=== PATIENT | female | born 1980 | race Caucasian/White ===

== ENCOUNTER 2017-09-22 02:30 | Observation (INO) ==
[2017-09-22] MEDS ORDERED: Naloxone 0.4 MG/ML INJ IVP PRN (05:01)
[2017-09-22] MEDS ORDERED: Acetaminophen 325 MG TABLET PO PRN (05:01)
[2017-09-22] MEDS ORDERED: Ondansetron 4 MG/2 ML VIAL IVP PRN (05:06)
--- NOTE | 2017-09-22 05:24 | Internal Med History&Physical ---
Date of Encounter: 09/22/17 Time of Encounter: 04:30 Internal Medicine - H&P: HPI Chief complaint: Seizure-like activity Admitted From: Home Plans for Post Hospital Care: Home History of present illness: Ms. Mojica is a 37 year old female present to [place] emergency room for seizure- like activity. Patient said she is in good health generally without significant past medical history. Patient was well until yesterday evening around 10:30 PM, she feels hot and sweaty and then loss of consciousness. The loss of consciousness is witnessed by patient's . Patient's held her to prevent fall and the patient did not have any injury. Per patient's , patient's eyeballs rolled up and loss of consciousness for about 3-4 minutes. Patient has no shaking. When patient regarding consciousness, she is confused for about 30 minutes. Patient was found blood in mouth but denies any pain in tongue. Patient has urinary incontinence during the period of loss of consciousness. Patient has never had similar problem before. When I saw her in the floor, she complained of nausea but no vomiting. Patient denies recent sick or diarrhea. In [place] emergency room, patient was found anemia with hemoglobin 7.0. Patient denies black stool or heavy period. Patient said she has ice craving for about 1 month. Past Med Surg Social Fam HX - Past Medical History Medical history: hypertension Psychiatric history: no psych history - Social History Smoking Status: Current every day smoker Smokeless Tobacco Status: No Alcohol use: occasionally Drug use: none - Family History Mother History Unknown: Yes Internal Medicine - H&P: Meds 3 Allergy/AdvReac Type Severity Reaction Status Date / Time Sulfa (Sulfonamide AdvReac Anaphylaxis Verified 09/21/17 23:21 Antibiotics) All Systems PM: A 10-system review of systems was performed and is negative for pertinent findings except as documented above in the HPI. - Constitutional Vitals: Temp Pulse Resp BP Pulse Ox 98.3 F 87 14 157/90 98 09/22/17 04:11 09/22/17 04:11 09/22/17 04:11 09/22/17 04:11 09/22/17 04:11 General appearance: Present: A&O X 3, no acute distress, answers questions appropriately - Head Head exam: Present: atraumatic, normocephalic - Eye Eye exam: Present: PERRL, conjuntiva pink, sclera anicteric Pupils: Present: PERRL - Neck Neck exam general surgery: Present: supple, trachea midline. Absent: lymphadenopathy - Respiratory Respiratory exam: Present: CTAB. Absent: accessory muscle use, rales, rhonchi, wheezes - Cardiovascular Cardiovascular exam: Present: RRR, +S1, +S2. Absent: diastolic murmur, gallop, rubs, systolic murmur - GI/Abdominal GI/Abdominal exam: Present: normal bowel sounds, soft, no peritoneal signs. Absent: distended, tenderness - Extremities Exam Extremities exam: Present: warm, radial pulses palpable and symmetrical. Absent : calf tenderness, cyanotic, pedal edema - Neurological Exam Neurological exam: Present: CN II-XII intact, oriented X3, no focal deficits. Absent: pronater drift, facial droop, speech deficit - Skin Skin exam: Present: dry, intact - Assessment and plan (1) Seizure-like activity Current Visit: Yes Status: Acute Assessment and plan: Etiology is undetermined. Patient has loss of consciousness with urinary incontinence. Patient has confusion after the loss of consciousness. - Place patient on continuous cardiac monitoring to rule out arrhythmia. - Echocardiogram to rule out hypertrophic cardiomyopathy or pulmonary hypertension or aortic valve disease. - MR head in AM - EEG in AM - Consult neurology in a.m. - Seizure precaution, fall precaution (2) DVT prophylaxis Current Visit: Yes Status: Acute Assessment and plan: Patient is young and ambulating well. No anticoagulation placed. (3) Hypokalemia Current Visit: No Status: Acute Assessment and plan: Etiology is undetermined. Patient said she has generally good appetite. Potassium supplement was given ER. Closely monitor potassium level. (4) Microcytic anemia Current Visit: No Status: Acute Assessment and plan: We will place anemia workup. Closely monitor hemoglobin level, transfusion as needed. - Time Spent With Patient Total time spent is greater than 50% in coordination of care (as documented) at patient's floor/unit and/or counseling patient: 40 minutes Greater than 35 minutes
[2017-09-22 05:36] LABS: Basophils % 0.3 %; Eosinophils % 0.3 %; Hematocrit 24.7 % (35.3-44.9); Hemoglobin 7.2 g/dL (11.5-15.4); Immature Granulocytes % 0.4 % (0-4); Lymphocytes # 0.7 K/mcL (0.6-4.6); Lymphocytes % 8.6 %; Mean Corpuscular HGB Conc 29.1 g/dL (31.6-35.5); Mean Corpuscular Hemoglobin 19.7 pg (28.0-33.3); Mean Corpuscular Volume 67.5 fL (83.0-100.0); Monocytes # 0.3 K/mcL (0.0-1.3); Monocytes % 3.4 %; Neutrophils # 6.9 K/mcL (1.6-8.9); Platelet Count 246 K/mcL (140-400); Red Blood Count 3.66 M/mcL (3.82-4.97); Red Cell Distribution Width 17.4 % (11.5-14.5)
[2017-09-22 05:48] LABS: INR 1.2; Prothrombin Time 12.6 Seconds (9.4-12.1)
[2017-09-22 05:53] LABS: Hypochromasia Present (Not Present); Microcytosis Present (Not Present); Platelet Estimate Normal (Normal)
[2017-09-22 05:54] LABS: Anisocytosis 1+ (Not Present)
[2017-09-22 06:04] LABS: Alanine Aminotransferase 9 Units/L (7-52); Albumin 3.8 g/dL (3.5-5.7); Albumin/Globulin Ratio 1.5 (1.1-2.2); Alkaline Phosphatase 59 Units/L (34-104); Aspartate Amino Transferase 12 Units/L (13-39); BUN/Creatinine Ratio 13 (6-26); Bilirubin,Total 0.4 mg/dL (0.3-1.0); Blood Urea Nitrogen 10 mg/dL (6-20); Calcium 7.9 mg/dL (8.6-10.3); Carbon Dioxide 25 mEq/L (23-29); Chloride 105 mEq/L (98-107); Chol/HDL Ratio 2.7 (0-4.9); Cholesterol 142 mg/dL (< 200); Globulin 2.6 g/dL (2.4-3.5); Glucose 112 mg/dL (70-105); HDL Cholesterol 53 mg/dL (40-59); LDL Cholesterol,Calculated 76 mg/dL (0-99); Osmolality,Calculated 282 (280-300); Phosphorous 2.4 mg/dL (2.7-4.5); Potassium 3.7 mEq/L (3.5-5.1); Sodium 136 mEq/L (136-145); Total Protein 6.4 g/dL (6.4-8.9); Triglycerides 63 mg/dL (< 150); eGFR For African Americans > 60 (> 60); eGFR For Non-African Americans > 60 (> 60)
[2017-09-22 06:11] LABS: Iron < 10 mcg/dL (50-170); Transferrin 330 mg/dL (203-362)
[2017-09-22 06:19] LABS: Ferritin 10 ng/mL (10-120)
[2017-09-22 06:22] LABS: Folate 6.4 ng/mL (3.0-16.0)
--- NOTE | 2017-09-22 12:38 | Neurology - Consult Note ---
Date of Encounter: 09/22/17 Time of Encounter: 12:32 Assessment and Plan (1) Syncope and collapse Current Visit: No Status: Acute Do not believe this was a seizure, especially with the current finding of significant microcytic anemia of unknown cause. Patient has reportedly blood in her mouth but no tongue biting renate and the urinary incontinence can also be seen in patient's with prolonged syncope. She has no risk factor for epilepsy, except her history of alcoholic beverage use but she does not appear to be a heavy alcohol user. MRI of brain showed essential no acute finding. Likely artefact reported with regarding to 1. Failed CSF suppression on the FLAIR sequences around the cisterns along the brainstem. This is most likely related to artifact. A noncontrast head CT is recommended to exclude any areas of hemorrhage. 2. Otherwise unremarkable MRI of the brain. No ictal focus is identified. Would recommend CT of head without contrast as suggested by radiologist but patient has no headaches and her neurological examination is normal. Would recommend medical work up for her anemia. Would not consider antiepileptic therapy. EEG can be done as an outpatient. Please continue medical and supportive care. Total time spent in this case is approximately 50 minutes History of Present Illness Chief complaint: passed out HPI: Ms. Mojica is a 37 year old female with no significant PMH except recent tooth ache who developed an episode of passing out vs seizure. She is interviewed in the presence of her mother and daughter. She states that yesterday she had few drinks (one course, alcoholic beverage) and then after she got out the truck and she suddenly felt sweaty and then passed out. She was caught up by her so she did not fall. reported that her eyes were rolling back but there was no shaking activity. She was out for few minutes and she lost her urine. Has blood in her mouth but no tongue biting renate and no tongue soreness. She was confused for about 30 minutes after came to. She also felt that her legs were heavy yesterday the entire day. MRI of head was reported no acute intracranal abnormality but recommended CT of head without contrast to rule out cerebral hemorrhage. No family history of epilepsy. No history of [employer] infections, no history of febrile convulsions when younger, no history of head trauma with loss of consciousness. Only significant lab finding was low HGB of 7, Patient denies any known cause for that. she does have some tooth ache for about 2 weeks. no fever. No heavy menstruation. Currently the patient feels much improved. No headaches, no dizziness and no focal weakness Past Med Surg Social Fam HX - Past Medical History Medical history: hypertension Psychiatric history: no psych history - Past Surgical History Surgical History: - Social History Smoking Status: Current every day smoker Smokeless Tobacco Status: No Alcohol use: occasionally Drug use: none - Family History Father Living Status: Hx Family Cardiac Disorders: Yes (ND) Brother Living Status: Still Living Hx Family Medical Disorders: Yes (Acute embolism) Mother History Unknown: Yes Medications and Allergies No Known Home Drugs 09/22/17 [History] 3 Allergy/AdvReac Type Severity Reaction Status Date / Time Sulfa (Sulfonamide Allergy Anaphylaxis Verified 09/22/17 10:56 Antibiotics) All Systems: The remainder of the systems were reviewed and are negative Physical Examination - Vital Signs Vital Signs: Initial Vital Signs Temp Pulse Resp BP Pulse Ox 98.3 F 87 14 157/90 98 09/22/17 04:11 09/22/17 04:11 09/22/17 04:11 09/22/17 04:11 09/22/17 04:11 - Constitutional General appearance: comfortable - Neurologic Detailed motor examination: full strength in all major muscle groups Motor examination - right side: 5/5: deltoids, biceps, triceps, wrist flexion, wrist extension, document coordinator, hip flexors, tibialis Anterior, quadriceps, toe extension (EHL), plantarflexion Motor examination - left side: 5/5: deltoids, biceps, triceps, wrist flexion, wrist extension, hip flexors, document coordinator, quadriceps, tibialis Anterior, toe extension (EHL), plantarflexion Reflexes: Biceps: 2+, Triceps: 2+, Brachioradialis: 2+, Patella: 2+, Achilles: 2 + Mental Status Examination: awake, alert, oriented to person, oriented to place, oriented to time, follows commands appropriately, answers questions appropriately, no agnosia, no aphasia, no aproxia Cranial nerve examination: PERRL, EOMI, visual haider intact, corneal reflexes brisk symmetrically, sensory to face intact, mastication intact, no facial asymmetry is present, no dysarthria, hearing is intact symmetrically, soft palate elevates bilaterally upon phonation, gag reflex intact, flexes SCM and trapezius muscles symmetrically with full power, tongue protrudes midline, no atrophy or facial fasiculations present Cerebellar examination: no dysmetria, performs finger to nose and heel to fulton symmetrically without ataxia, no gait ataxia, no truncal ataxia, no difficulty with rapid alternating movements Results - Laboratory Findings CBC and BMP: 09/22/17 05:22 09/22/17 05:22 Abnormal lab findings: Abnormal lab results RBC 3.66 M/mcL (3.82-4.97) L 09/22/17 05:22 Hgb 7.2 g/dL (11.5-15.4) L 09/22/17 05:22 Hct 24.7 % (35.3-44.9) L 09/22/17 05:22 MCV 67.5 fL (83.0-100.0) L 09/22/17 05:22 MCH 19.7 pg (28.0-33.3) L 09/22/17 05:22 MCHC 29.1 g/dL (31.6-35.5) L 09/22/17 05:22 RDW 17.4 % (11.5-14.5) H 09/22/17 05:22 Hypochromasia Present (Not Present) A 09/22/17 05:22 Anisocytosis 1+ (Not Present) A 09/22/17 05:22 Microcytosis Present (Not Present) A 09/22/17 05:22 PT 12.6 Seconds (9.4-12.1) H 09/22/17 05:22 Glucose 112 mg/dL (70-105) H 09/22/17 05:22 Calcium 7.9 mg/dL (8.6-10.3) L 09/22/17 05:22 Phosphorus 2.4 mg/dL (2.7-4.5) L 09/22/17 05:22 Iron < 10 mcg/dL (50-170) L 09/22/17 05:22 AST 12 Units/L (13-39) L 09/22/17 05:22 Vitamin B12 156 pg/mL (250-1100) L 09/22/17 05:22 Consult Discharge Plan - Plan Referrals: NONE,PCP [Primary Care Provider] - Georgie Juarez [Family Provider] -
[2017-09-22] MEDS ORDERED: Furosemide 20 MG/2 ML VIAL IVP ONE (17:12)
[2017-09-22] MEDS ORDERED: amLODIPine 5 MG TABLET PO ONE (17:15)
--- NOTE | 2017-09-22 17:19 | Event Note ---
Date of Encounter: 09/22/17 Time of Encounter: 11:00 Patient was seen by nocturnalist earlier this morning and also by myself Patient presented with syncopal/question post seizure like activity Neurology consulted and does not suspect seizures with recommendations for EEG which could be completed as outpatient. Imaging of the brain without any acute findings Patient found to have acute blood loss anemia and will be transfused 2 units of packed red blood cells; we will consult hematology/oncology Patient with also persistent elevated blood pressures so will start calcium channel fifi
[2017-09-22] MEDS ORDERED: 0.9 % Sodium Chloride 250 ML ONE ×2 (20:19→23:26)
[2017-09-22] MEDS ORDERED: *HR* Metoprolol 5 MG/5 ML VIAL IVP ONE (22:16)
[2017-09-22] MEDS: Lactobacillus 1 EACH CAP.SPRINK PO SCH (22:38)
[2017-09-23] MEDS ORDERED: Furosemide 20 MG/2 ML VIAL IVP ONE (03:00)
[2017-09-23 03:29] LABS: Hematocrit 28.8 % (35.3-44.9); Hemoglobin 8.5 g/dL (11.5-15.4)
[2017-09-23 04:57] LABS: Amphetamine Screen,Urine Negative ng/mL (Cutoff=1000); Barbiturate Screen,Urine Negative ng/mL (Cutoff=200); Benzodiazepines Screen,Urine Negative ng/mL (Cutoff=200); Cannabinoid Screen,Urine Negative ng/mL (Cutoff = 50); Cocaine Screen,Urine Negative ng/mL (Cutoff= 300); Opiate Screen,Urine Negative ng/mL (Cutoff=300); Phencyclidine Screen,Urine Negative ng/mL (Cutoff=25)
[2017-09-23 09:23] LABS: Basophils # 0.1 K/mcL (0.0-0.2); Eosinophils # 0.2 K/mcL (0.0-0.6); Eosinophils % 3.8 %; Hematocrit 32.4 % (35.3-44.9); Hemoglobin 9.6 g/dL (11.5-15.4); Immature Granulocytes % 0.2 % (0-4); Lymphocytes # 0.9 K/mcL (0.6-4.6); Lymphocytes % 14.8 %; Mean Corpuscular HGB Conc 29.6 g/dL (31.6-35.5); Mean Corpuscular Hemoglobin 20.5 pg (28.0-33.3); Mean Corpuscular Volume 69.1 fL (83.0-100.0); Mean Platelet Volume 10.9 fL (9.4-12.4); Monocytes # 0.3 K/mcL (0.0-1.3); Monocytes % 5.6 %; Neutrophils # 4.3 K/mcL (1.6-8.9); Platelet Count 292 K/mcL (140-400); Red Blood Count 4.69 M/mcL (3.82-4.97); Red Cell Distribution Width 18.9 % (11.5-14.5); Segmented Neutrophils % 74.6 %
[2017-09-23 09:39] LABS: BUN/Creatinine Ratio 13 (6-26); Blood Urea Nitrogen 12 mg/dL (6-20); Calcium 8.9 mg/dL (8.6-10.3); Carbon Dioxide 28 mEq/L (23-29); Chloride 101 mEq/L (98-107); Glucose 131 mg/dL (70-105); Osmolality,Calculated 284 (280-300); Potassium 3.6 mEq/L (3.5-5.1); Sodium 136 mEq/L (136-145); eGFR For African Americans > 60 (> 60); eGFR For Non-African Americans > 60 (> 60)
[2017-09-23] MEDS: Amoxicillin/Clavulanate 500 MG TABLET PO SCH ×2 (09:41→17:39)
[2017-09-23] MEDS: Lactobacillus 1 EACH CAP.SPRINK PO SCH (09:41)
[2017-09-23 10:03] LABS: Microcytosis Present (Not Present); Platelet Estimate Normal (Normal)
--- NOTE | 2017-09-23 17:55 | Internal Med Progress Note ---
Date of Encounter: 09/23/17 Time of Encounter: 11:00 - Assessment and plan (1) Microcytic anemia Current Visit: No Status: Inactive Assessment and plan: Patient's hemoglobin has improved from 7.2 to 9.6 status post 1 unit of packed red blood cells Discussed with hematology/oncologist with recommendations for potential iron infusion Hematology/oncology will see the patient on 09/24/17 Continue to monitor (2) Hypokalemia Current Visit: No Status: Inactive Assessment and plan: Resolved; continue to monitor (3) Seizure-like activity Current Visit: Yes Status: Acute Assessment and plan: Etiology is undetermined. Neurology has seen patient and has determined that seizure unlikely (4) DVT prophylaxis Current Visit: Yes Status: Acute Assessment and plan: Patient is young and ambulating well. No anticoagulation placed. - Time Spent With Patient Total time spent is greater than 50% in coordination of care (as documented) at patient's floor/unit and/or counseling patient: - Subjective Interval history: Patient reports a feeling much better after receiving 1 unit of packed red blood cells - Constitutional Vitals: Temp Pulse Resp BP Pulse Ox 97.8 F 71 16 163/77 98 09/23/17 16:05 09/23/17 16:05 09/23/17 16:05 09/23/17 16:05 09/23/17 16:05 General appearance: Present: A&O X 3, no acute distress, answers questions appropriately - Respiratory Respiratory exam: Present: CTAB. Absent: accessory muscle use, rales, rhonchi, wheezes - Cardiovascular Cardiovascular exam: Present: RRR, +S1, +S2. Absent: diastolic murmur, gallop, rubs, systolic murmur - Skin Skin exam: Present: pallor Internal Medicine: Result - Labs CBC & Chem 7: 09/23/17 09:11 09/23/17 09:11 Labs: Short CBC 09/23/17 09/23/17 Range/Units 03:09 09:11 WBC 5.8 (4.3-11.1) K/mcL Hgb 8.5 L 9.6 L (11.5-15.4) g/dL Hct 28.8 L 32.4 L (35.3-44.9) % Plt Count 292 (140-400) K/mcL Neutrophils # 4.3 (1.6-8.9) K/mcL BMP 06/10/18 09:11 Sodium 136 Potassium 3.6 Chloride 101 Carbon Dioxide 28 BUN 12 Creatinine 0.96 Glucose 131 H Calcium 8.9 - ABG Interpretation ABG results: PT/INR, D-dimer PT 12.6 Seconds (9.4-12.1) H 09/22/17 05:22 - VTE Documentation of Mechanical Device: Intermittent pneumatic compression device Consult Discharge Plan - Plan Referrals: Georgie Juarez [Family Provider] - NONE,PCP [Primary Care Provider] -
[2017-09-24] MEDS: Amoxicillin/Clavulanate 500 MG TABLET PO SCH ×2 (08:37→17:44)
[2017-09-24] MEDS: Lactobacillus 1 EACH CAP.SPRINK PO SCH (08:38)
[2017-09-24 10:03] LABS: Basophils # 0.1 K/mcL (0.0-0.2); Eosinophils # 0.2 K/mcL (0.0-0.6); Eosinophils % 3.9 %; Hematocrit 32.5 % (35.3-44.9); Hemoglobin 9.5 g/dL (11.5-15.4); Immature Granulocytes % 0.2 % (0-4); Lymphocytes # 0.9 K/mcL (0.6-4.6); Lymphocytes % 14.5 %; Mean Corpuscular HGB Conc 29.2 g/dL (31.6-35.5); Mean Corpuscular Hemoglobin 20.3 pg (28.0-33.3); Mean Corpuscular Volume 69.3 fL (83.0-100.0); Monocytes # 0.4 K/mcL (0.0-1.3); Monocytes % 5.9 %; Platelet Count 309 K/mcL (140-400); Red Blood Count 4.69 M/mcL (3.82-4.97); Red Cell Distribution Width 18.8 % (11.5-14.5); Segmented Neutrophils % 74.5 %
[2017-09-24 10:08] LABS: Neutrophils # 4.5 K/mcL (1.6-8.9)
[2017-09-24 10:33] LABS: BUN/Creatinine Ratio 16 (6-26); Blood Urea Nitrogen 15 mg/dL (6-20); Carbon Dioxide 30 mEq/L (23-29); Chloride 102 mEq/L (98-107); Glucose 117 mg/dL (70-105); Osmolality,Calculated 284 (280-300); Potassium 3.8 mEq/L (3.5-5.1); Sodium 136 mEq/L (136-145); eGFR For African Americans > 60 (> 60); eGFR For Non-African Americans > 60 (> 60)
[2017-09-24 10:57] LABS: Anisocytosis 1+ (Not Present); Microcytosis Present (Not Present); Platelet Estimate Normal (Normal)
--- NOTE | 2017-09-24 12:03 | EEG/EMG/Oth Biometrics Report ---
EEG Procedure Report Date of procedure: 09/24/17 EEG Procedure: Routine EEG Procedure Note: This EEG was acquired with standard international 10-20 system with EKG recording. The background EEG activity was characterized by the presence of posterior dominant alpha rhythm with the best frequency up to 11 Hz. The background activity was reactive to eye openings. Sleep stages were characterized by the presence of background fragmentation, vertex waves, K complexes, and sleep spindles. There are no electrographic seizures identified during this tracing. There are no epileptiform discharges and focal slowing noted during this recording. Photic stimulation and hyperventilation produced no abnormalities. Photic driving response noted at the bilateral occipital region, time locked with the photic stimulation Hyperventilation efforts appeared adequate due to development of diffuse background slow during and immediately after HV challenge. EKG tracing showed no significant cardiac dysrhythmia. Impression: This is essentially a normal awake and asleep EEG. Clinical Correlation: Normal EEGs, however, do not exclude epilepsy. Clinical correlation is advised.
[2017-09-24] MEDS: Cyanocobalamin (B-12) 1,000 MCG/ML VIAL SQ SCH (17:43)
--- NOTE | 2017-09-24 17:48 | Internal Med Progress Note ---
Date of Encounter: 09/24/17 Time of Encounter: 11:00 - Assessment and plan (1) Microcytic anemia Current Visit: No Status: Inactive Assessment and plan: Patient's hemoglobin has improved from 7.2 to 9.5 status post 1 unit of packed red blood cells Discussed with hematology/oncologist with recommendations for potential iron infusion Hematology/oncology will see the patient on 09/24/17 Continue to monitor (2) HTN (hypertension) Current Visit: Yes Status: Acute Assessment and plan: Patient found to have elevated blood pressures which have not been controlled since starting calcium channel fifi and beta fifi Qualifiers: Qualified Code(s): I10 - Essential (primary) hypertension (3) Hypokalemia Current Visit: No Status: Inactive Assessment and plan: Resolved; continue to monitor (4) Seizure-like activity Current Visit: Yes Status: Acute Assessment and plan: Etiology is undetermined. Neurology has seen patient and has determined that seizure unlikely (5) DVT prophylaxis Current Visit: Yes Status: Acute Assessment and plan: Patient is young and ambulating well. No anticoagulation placed. - Time Spent With Patient Total time spent is greater than 50% in coordination of care (as documented) at patient's floor/unit and/or counseling patient: - Subjective Interval history: Patient presented due to syncopal event with reported seizure-like activity found to have acute anemia reports of feeling much better after blood transfusion Her EEG was normal Patient also found to have elevated blood pressures which have not been controlled since starting calcium channel fifi and beta fifi - Constitutional Vitals: Temp Pulse Resp BP Pulse Ox 98.4 F 72 16 133/74 98 09/24/17 14:34 09/24/17 14:34 09/24/17 14:34 09/24/17 14:34 09/24/17 14:34 General appearance: Present: A&O X 3, no acute distress, answers questions appropriately - Respiratory Respiratory exam: Present: CTAB. Absent: accessory muscle use, rales, rhonchi, wheezes - Cardiovascular Cardiovascular exam: Present: RRR, +S1, +S2. Absent: diastolic murmur, gallop, rubs, systolic murmur Internal Medicine: Result - Labs CBC & Chem 7: 09/24/17 09:48 09/24/17 09:48 Labs: Short CBC 09/24/17 Range/Units 09:48 WBC 6.1 (4.3-11.1) K/mcL Hgb 9.5 L (11.5-15.4) g/dL Hct 32.5 L (35.3-44.9) % Plt Count 309 (140-400) K/mcL Neutrophils # 4.5 (1.6-8.9) K/mcL BMP 09/24/17 09:48 Sodium 136 Potassium 3.8 Chloride 102 Carbon Dioxide 30 H BUN 15 Creatinine 0.94 Glucose 117 H Calcium 9.0 - ABG Interpretation ABG results: PT/INR, D-dimer PT 12.6 Seconds (9.4-12.1) H 09/22/17 05:22 - VTE Documentation of Mechanical Device: Intermittent pneumatic compression device Consult Discharge Plan - Plan Referrals: Georgie Juarez [Family Provider] - NONE,PCP [Primary Care Provider] -
--- NOTE | 2017-09-24 18:45 | Oncology Inp Consult Note ---
<Chrystal Galvan L - Last Filed: 09/25/17 07:04> Date of Encounter: 09/24/17 Time of Encounter: 17:00 Assessment and Plan (1) Iron deficiency anemia Status: Acute Assessment and plan: Micocytic Anemia S/P 1 unit PRBC. Hgb responding appropriately, 9.5 today. Etiology unclear Concomitant B12 deficiency, suspect malabsoprtion Celiac disease workup ordered. She will need EGD/Colonscopy, given that her hgb has responded to the transfusions with no further acute decrease, scopes may be ordered for outpatient testing. Prefer she has GI consultation and scopes within the next week following discharge, will arrange for f/u with Dr. Bravo following her GI scopes. Ordered venofer for repletion this evening, further iron infusions to be determined on outpatient basis. Will arrange for follow up after discharge, otherwise, hematology will sign off , please feel free to call with any questions. Qualifiers: Qualified Code(s): D50.9 - Iron deficiency anemia, unspecified (2) B12 deficiency Status: Acute Assessment and plan: [id number] Ordered B12 SQ daily x5-please continue at discharge Parietal cell and Intrinsic factor antibody testing obtained. Denies paresthesia, ataxia or cognitive issues. Denies alcohol abuse. Please refer to Dr. Bravo's attestation below. - Data of Consult Patient: new to practice Consult date: 09/24/17 Requesting Physician: Mohan Acharya Primary Care Provider: GEORGINA GARSIA Family Provider: Georgie Duke - Consult Narrative Reason for consult: MONIE History of present illness: Ms. Mojica is a 37 year old female without significant past medical history, presented to [place] [facility] for seizure like activity. She had a witnesses episode of loss of consciousness. Per patients she lost consciousness for about 3- 4 minutes, not associated with tremors, she was confused for about 30 minutes following regaining consciousness , she had urinary incontinence during this episode. Patient felt as though she had a hot flash prior to her episode, she continues to experience hot flashes over the weekend. Ms. Mojica is a 37 year old female present to [place] emergency room for seizure- like activity. Patient said she is in good health generally without significant past medical history. Upon presentation she was found to have a hgb of 7. She denies hematochezia. hematemesis, melena, heavy menstruation. She denies chest pain, abdominal pain or SOB. She has no history of seizures or history or anemia. No prior GI history or surgical intervention. Past Med Surg Social Fam HX - Past Medical History Medical history: hypertension Psychiatric history: no psych history - Past Surgical History Surgical History: - Social History Smoking Status: Current every day smoker Smokeless Tobacco Status: No Alcohol use: occasionally Drug use: none - Family History Father Living Status: Hx Family Cardiac Disorders: Yes (IA) Brother Living Status: Still Living Hx Family Medical Disorders: Yes (Acute embolism) Mother History Unknown: Yes Medications and Allergies Cyanocobalamin (B-12) [Vitamin B12] 1,000 mcg SQ DAILY #4 vial 09/25/17 [Rx] Metoprolol [Lopressor] 25 mg PO BID #60 tablet 09/25/17 [Rx] amLODIPine [Norvasc] 10 mg PO DAILY #60 tablet 09/25/17 [Rx] 3 Allergy/AdvReac Type Severity Reaction Status Date / Time Sulfa (Sulfonamide Allergy Anaphylaxis Verified 09/22/17 10:56 Antibiotics) Constitutional: Present: excessive sweating, headache(s). Absent: anorexia, chills, fatigue, fever(s), frequent falls, weakness, weight loss Eyes: Absent: change in vision Nose, mouth and throat: Absent: dysphagia Cardiovascular: Absent: chest pain, palpitations Respiratory: Absent: cough, dyspnea Gastrointestinal: Present: as per HPI. Absent: abdominal pain, change in bowel habits, hematemesis, hematochezia, melena, nausea, vomiting Genitourinary: Absent: dysuria, hematuria Menstruation: period normal Musculoskeletal: Absent: back pain, numbness, tingling Integumentary: Absent: rash, wounds Neurological: Present: as per HPI Hematologic/Lymphatic: Present: as per HPI Oncology - Exam - Constitutional Vitals: Temp Pulse Resp BP Pulse Ox 98.4 F 72 16 133/74 98 09/24/17 14:34 09/24/17 14:34 09/24/17 14:34 09/24/17 14:34 09/24/17 14:34 General appearance: cooperative, no acute distress, no febrile - Head Head exam: Present: atraumatic - ENT ENT exam: Present: mucous membranes moist - Respiratory Respiratory exam: Present: CTAB. Absent: respiratory distress - Cardiovascular Cardiovascular exam: Present: RRR, +S1, +S2 - GI/Abdominal GI/Abdominal exam: Present: normal bowel sounds, soft. Absent: guarding, rebound, tenderness - Extremities Exam Extremities exam: Present: normal inspection. Absent: calf tenderness - Neurological Exam Neurological exam: Present: alert, oriented X3, no focal deficits, strengths equal and symetr throughout - Psychiatric Psychiatric exam: Present: normal affect, normal mood - Skin Skin exam: Present: dry, intact, pallor, warm Oncology - Results Labs: 3 09/24/17 09/24/17 09/24/17 10:25 09:48 09:48 WBC 6.1 RBC 4.69 Hgb 9.5 L Hct 32.5 L MCV 69.3 L MCH 20.3 L MCHC 29.2 L RDW 18.8 H Plt Count 309 MPV 11.0 Immature Gran % 0.2 Seg Neutrophils % 74.5 Lymphocytes % 14.5 Monocytes % 5.9 Eosinophils % 3.9 Basophils % 1.0 Neutrophils # 4.5 Lymphocytes # 0.9 Monocytes # 0.4 Eosinophils # 0.2 Basophils # 0.1 Platelet Estimate Normal Hypochromasia Anisocytosis 1+ A Microcytosis Present A PT INR Sodium 136 Potassium 3.8 Chloride 102 Carbon Dioxide 30 H BUN 15 Creatinine 0.94 Est GFR ( Amer) > 60 Est GFR (Non-Af Amer) > 60 BUN/Creatinine Ratio 16 Glucose 117 H Calculated Osmolality 284 Calcium 9.0 Phosphorus Magnesium Iron % Saturation Transferrin Ferritin Total Bilirubin AST ALT Alkaline Phosphatase Lactate Dehydrogenase 166 Serum Total Protein Albumin Globulin Albumin/Globulin Ratio Triglycerides Cholesterol LDL Cholesterol, Calc VLDL Cholesterol, Calc HDL Cholesterol Cholesterol/HDL Ratio Vitamin B12 Folate Urine Opiates Screen Ur Barbiturates Screen Ur Phencyclidine Scrn Ur Amphetamines Screen U Benzodiazepines Scrn Urine Cocaine Screen U Marijuana (THC) Screen Blood Type Antibody Screen Crossmatch 3 09/23/17 09/23/17 09/23/17 09:11 09:11 04:05 WBC 5.8 RBC 4.69 Hgb 9.6 L Hct 32.4 L MCV 69.1 L MCH 20.5 L MCHC 29.6 L RDW 18.9 H Plt Count 292 MPV 10.9 Immature Gran % 0.2 Seg Neutrophils % 74.6 Lymphocytes % 14.8 Monocytes % 5.6 Eosinophils % 3.8 Basophils % 1.0 Neutrophils # 4.3 Lymphocytes # 0.9 Monocytes # 0.3 Eosinophils # 0.2 Basophils # 0.1 Platelet Estimate Normal Hypochromasia Anisocytosis Microcytosis Present A PT INR Sodium 136 Potassium 3.6 Chloride 101 Carbon Dioxide 28 BUN 12 Creatinine 0.96 Est GFR ( Amer) > 60 Est GFR (Non-Af Amer) > 60 BUN/Creatinine Ratio 13 Glucose 131 H Calculated Osmolality 284 Calcium 8.9 Phosphorus Magnesium Iron % Saturation Transferrin Ferritin Total Bilirubin AST ALT Alkaline Phosphatase Lactate Dehydrogenase Serum Total Protein Albumin Globulin Albumin/Globulin Ratio Triglycerides Cholesterol LDL Cholesterol, Calc VLDL Cholesterol, Calc HDL Cholesterol Cholesterol/HDL Ratio Vitamin B12 Folate Urine Opiates Screen Negative Ur Barbiturates Screen Negative Ur Phencyclidine Scrn Negative Ur Amphetamines Screen Negative U Benzodiazepines Scrn Negative Urine Cocaine Screen Negative U Marijuana (THC) Screen Negative Blood Type Antibody Screen Crossmatch 3 09/23/17 09/22/17 09/22/17 03:09 17:20 05:22 WBC RBC Hgb 8.5 L Hct 28.8 L MCV MCH MCHC RDW Plt Count MPV Immature Gran % Seg Neutrophils % Lymphocytes % Monocytes % Eosinophils % Basophils % Neutrophils # Lymphocytes # Monocytes # Eosinophils # Basophils # Platelet Estimate Hypochromasia Anisocytosis Microcytosis PT INR Sodium Potassium Chloride Carbon Dioxide BUN Creatinine Est GFR ( Amer) Est GFR (Non-Af Amer) BUN/Creatinine Ratio Glucose Calculated Osmolality Calcium Phosphorus Magnesium Iron < 10 L % Saturation TNP Transferrin 330 Ferritin 10 Total Bilirubin AST ALT Alkaline Phosphatase Lactate Dehydrogenase Serum Total Protein Albumin Globulin Albumin/Globulin Ratio Triglycerides Cholesterol LDL Cholesterol, Calc VLDL Cholesterol, Calc HDL Cholesterol Cholesterol/HDL Ratio Vitamin B12 Folate Urine Opiates Screen Ur Barbiturates Screen Ur Phencyclidine Scrn Ur Amphetamines Screen U Benzodiazepines Scrn Urine Cocaine Screen U Marijuana (THC) Screen Blood Type O POSITIVE Antibody Screen NEGATIVE Crossmatch See Detail 3 09/22/17 09/22/17 09/22/17 05:22 05:22 05:22 WBC RBC Hgb Hct MCV MCH MCHC RDW Plt Count MPV Immature Gran % Seg Neutrophils % Lymphocytes % Monocytes % Eosinophils % Basophils % Neutrophils # Lymphocytes # Monocytes # Eosinophils # Basophils # Platelet Estimate Hypochromasia Anisocytosis Microcytosis PT 12.6 H INR 1.2 Sodium 136 Potassium 3.7 D Chloride 105 Carbon Dioxide 25 BUN 10 Creatinine 0.79 Est GFR ( Amer) > 60 Est GFR (Non-Af Amer) > 60 BUN/Creatinine Ratio 13 Glucose 112 H Calculated Osmolality 282 Calcium 7.9 L Phosphorus 2.4 L Magnesium 2.0 Iron % Saturation Transferrin Ferritin Total Bilirubin 0.4 AST 12 L ALT 9 Alkaline Phosphatase 59 Lactate Dehydrogenase Serum Total Protein 6.4 Albumin 3.8 Globulin 2.6 Albumin/Globulin Ratio 1.5 Triglycerides 63 Cholesterol 142 LDL Cholesterol, Calc 76 VLDL Cholesterol, Calc 13 HDL Cholesterol 53 Cholesterol/HDL Ratio 2.7 Vitamin B12 156 L Folate 6.4 Urine Opiates Screen Ur Barbiturates Screen Ur Phencyclidine Scrn Ur Amphetamines Screen U Benzodiazepines Scrn Urine Cocaine Screen U Marijuana (THC) Screen Blood Type Antibody Screen Crossmatch 3 09/22/17 05:22 WBC 7.9 RBC 3.66 L Hgb 7.2 L Hct 24.7 L MCV 67.5 L MCH 19.7 L MCHC 29.1 L RDW 17.4 H Plt Count 246 MPV 11.0 Immature Gran % 0.4 Seg Neutrophils % 87.0 Lymphocytes % 8.6 Monocytes % 3.4 Eosinophils % 0.3 Basophils % 0.3 Neutrophils # 6.9 Lymphocytes # 0.7 Monocytes # 0.3 Eosinophils # 0.0 Basophils # 0.0 Platelet Estimate Normal Hypochromasia Present A Anisocytosis 1+ A Microcytosis Present A PT INR Sodium Potassium Chloride Carbon Dioxide BUN Creatinine Est GFR ( Amer) Est GFR (Non-Af Amer) BUN/Creatinine Ratio Glucose Calculated Osmolality Calcium Phosphorus Magnesium Iron % Saturation Transferrin Ferritin Total Bilirubin AST ALT Alkaline Phosphatase Lactate Dehydrogenase Serum Total Protein Albumin Globulin Albumin/Globulin Ratio Triglycerides Cholesterol LDL Cholesterol, Calc VLDL Cholesterol, Calc HDL Cholesterol Cholesterol/HDL Ratio Vitamin B12 Folate Urine Opiates Screen Ur Barbiturates Screen Ur Phencyclidine Scrn Ur Amphetamines Screen U Benzodiazepines Scrn Urine Cocaine Screen U Marijuana (THC) Screen Blood Type Antibody Screen Crossmatch Consult Discharge Plan - Plan Instructions: Metoprolol (By mouth), Amlodipine (By mouth), Electroencephalogram (DC), Hypertension (DC), Anemia (DC), Vitamin B12 Deficiency (GEN) Additional Instructions: It is recommneded that you have an EEG completed on outpatient basis. Please follow-up with your primary care doctor for referral. Referrals: Arias Bravo [Non-Partnered Physician] - (Please call the office for follow- up appt once you have seen GI doctor ) Kevin Dawson [Non-Partnered Physician] - 10/01/17 9:00 am (Please arrive 15- 20 minutes early and fill out paperwork. Please bring your photo ID, insurance card and any medications you are on. If you need to cancel please give a 24 hour notice. Thank you) Jimbo Doan MD [Partnered Physician] - (It is recommended to follow-up with gastroenterology within 1-2 weeks for possible EGD/colonoscopy) Prescriptions: amLODIPine [Norvasc] 10 mg PO DAILY #60 tablet Cyanocobalamin (B-12) [Vitamin B12] 1,000 mcg SQ DAILY #4 vial Metoprolol [Lopressor] 25 mg PO BID #60 tablet <Arias Bravo - Last Filed: 09/25/17 10:46> Date of Encounter: 09/24/17 - Data of Consult Requesting Physician: Mohan Acharya Primary Care Provider: GEORGINA GARSIA Family Provider: Georgie Duke - Consult Narrative History of present illness: Ms. Mojica is a 37 year old female Oncology - Exam - Constitutional Vitals: Temp Pulse Resp BP Pulse Ox 97.8 F 68 14 169/92 98 09/25/17 07:21 09/25/17 07:21 09/25/17 07:21 09/25/17 07:21 09/25/17 07:21 Oncology - Results Labs: 3 09/24/17 09/24/17 09/24/17 10:25 09:48 09:48 WBC 6.1 RBC 4.69 Hgb 9.5 L Hct 32.5 L MCV 69.3 L MCH 20.3 L MCHC 29.2 L RDW 18.8 H Plt Count 309 MPV 11.0 Immature Gran % 0.2 Seg Neutrophils % 74.5 Lymphocytes % 14.5 Monocytes % 5.9 Eosinophils % 3.9 Basophils % 1.0 Neutrophils # 4.5 Lymphocytes # 0.9 Monocytes # 0.4 Eosinophils # 0.2 Basophils # 0.1 Platelet Estimate Normal Hypochromasia Anisocytosis 1+ A Microcytosis Present A PT INR Sodium 136 Potassium 3.8 Chloride 102 Carbon Dioxide 30 H BUN 15 Creatinine 0.94 Est GFR ( Amer) > 60 Est GFR (Non-Af Amer) > 60 BUN/Creatinine Ratio 16 Glucose 117 H Calculated Osmolality 284 Calcium 9.0 Phosphorus Magnesium Iron % Saturation Transferrin Ferritin Total Bilirubin AST ALT Alkaline Phosphatase Lactate Dehydrogenase 166 Serum Total Protein Albumin Globulin Albumin/Globulin Ratio Triglycerides Cholesterol LDL Cholesterol, Calc VLDL Cholesterol, Calc HDL Cholesterol Cholesterol/HDL Ratio Vitamin B12 Folate Urine Opiates Screen Ur Barbiturates Screen Ur Phencyclidine Scrn Ur Amphetamines Screen U Benzodiazepines Scrn Urine Cocaine Screen U Marijuana (THC) Screen Blood Type Antibody Screen Crossmatch 3 09/23/17 09/23/17 09/23/17 09:11 09:11 04:05 WBC 5.8 RBC 4.69 Hgb 9.6 L Hct 32.4 L MCV 69.1 L MCH 20.5 L MCHC 29.6 L RDW 18.9 H Plt Count 292 MPV 10.9 Immature Gran % 0.2 Seg Neutrophils % 74.6 Lymphocytes % 14.8 Monocytes % 5.6 Eosinophils % 3.8 Basophils % 1.0 Neutrophils # 4.3 Lymphocytes # 0.9 Monocytes # 0.3 Eosinophils # 0.2 Basophils # 0.1 Platelet Estimate Normal Hypochromasia Anisocytosis Microcytosis Present A PT INR Sodium 136 Potassium 3.6 Chloride 101 Carbon Dioxide 28 BUN 12 Creatinine 0.96 Est GFR ( Amer) > 60 Est GFR (Non-Af Amer) > 60 BUN/Creatinine Ratio 13 Glucose 131 H Calculated Osmolality 284 Calcium 8.9 Phosphorus Magnesium Iron % Saturation Transferrin Ferritin Total Bilirubin AST ALT Alkaline Phosphatase Lactate Dehydrogenase Serum Total Protein Albumin Globulin Albumin/Globulin Ratio Triglycerides Cholesterol LDL Cholesterol, Calc VLDL Cholesterol, Calc HDL Cholesterol Cholesterol/HDL Ratio Vitamin B12 Folate Urine Opiates Screen Negative Ur Barbiturates Screen Negative Ur Phencyclidine Scrn Negative Ur Amphetamines Screen Negative U Benzodiazepines Scrn Negative Urine Cocaine Screen Negative U Marijuana (THC) Screen Negative Blood Type Antibody Screen Crossmatch 3 09/23/17 09/22/17 09/22/17 03:09 17:20 05:22 WBC RBC Hgb 8.5 L Hct 28.8 L MCV MCH MCHC RDW Plt Count MPV Immature Gran % Seg Neutrophils % Lymphocytes % Monocytes % Eosinophils % Basophils % Neutrophils # Lymphocytes # Monocytes # Eosinophils # Basophils # Platelet Estimate Hypochromasia Anisocytosis Microcytosis PT INR Sodium Potassium Chloride Carbon Dioxide BUN Creatinine Est GFR ( Amer) Est GFR (Non-Af Amer) BUN/Creatinine Ratio Glucose Calculated Osmolality Calcium Phosphorus Magnesium Iron < 10 L % Saturation TNP Transferrin 330 Ferritin 10 Total Bilirubin AST ALT Alkaline Phosphatase Lactate Dehydrogenase Serum Total Protein Albumin Globulin Albumin/Globulin Ratio Triglycerides Cholesterol LDL Cholesterol, Calc VLDL Cholesterol, Calc HDL Cholesterol Cholesterol/HDL Ratio Vitamin B12 Folate Urine Opiates Screen Ur Barbiturates Screen Ur Phencyclidine Scrn Ur Amphetamines Screen U Benzodiazepines Scrn Urine Cocaine Screen U Marijuana (THC) Screen Blood Type O POSITIVE Antibody Screen NEGATIVE Crossmatch See Detail 3 09/22/17 09/22/17 09/22/17 05:22 05:22 05:22 WBC RBC Hgb Hct MCV MCH MCHC RDW Plt Count MPV Immature Gran % Seg Neutrophils % Lymphocytes % Monocytes % Eosinophils % Basophils % Neutrophils # Lymphocytes # Monocytes # Eosinophils # Basophils # Platelet Estimate Hypochromasia Anisocytosis Microcytosis PT 12.6 H INR 1.2 Sodium 136 Potassium 3.7 D Chloride 105 Carbon Dioxide 25 BUN 10 Creatinine 0.79 Est GFR ( Amer) > 60 Est GFR (Non-Af Amer) > 60 BUN/Creatinine Ratio 13 Glucose 112 H Calculated Osmolality 282 Calcium 7.9 L Phosphorus 2.4 L Magnesium 2.0 Iron % Saturation Transferrin Ferritin Total Bilirubin 0.4 AST 12 L ALT 9 Alkaline Phosphatase 59 Lactate Dehydrogenase Serum Total Protein 6.4 Albumin 3.8 Globulin 2.6 Albumin/Globulin Ratio 1.5 Triglycerides 63 Cholesterol 142 LDL Cholesterol, Calc 76 VLDL Cholesterol, Calc 13 HDL Cholesterol 53 Cholesterol/HDL Ratio 2.7 Vitamin B12 156 L Folate 6.4 Urine Opiates Screen Ur Barbiturates Screen Ur Phencyclidine Scrn Ur Amphetamines Screen U Benzodiazepines Scrn Urine Cocaine Screen U Marijuana (THC) Screen Blood Type Antibody Screen Crossmatch 3 09/22/17 05:22 WBC 7.9 RBC 3.66 L Hgb 7.2 L Hct 24.7 L MCV 67.5 L MCH 19.7 L MCHC 29.1 L RDW 17.4 H Plt Count 246 MPV 11.0 Immature Gran % 0.4 Seg Neutrophils % 87.0 Lymphocytes % 8.6 Monocytes % 3.4 Eosinophils % 0.3 Basophils % 0.3 Neutrophils # 6.9 Lymphocytes # 0.7 Monocytes # 0.3 Eosinophils # 0.0 Basophils # 0.0 Platelet Estimate Normal Hypochromasia Present A Anisocytosis 1+ A Microcytosis Present A PT INR Sodium Potassium Chloride Carbon Dioxide BUN Creatinine Est GFR ( Amer) Est GFR (Non-Af Amer) BUN/Creatinine Ratio Glucose Calculated Osmolality Calcium Phosphorus Magnesium Iron % Saturation Transferrin Ferritin Total Bilirubin AST ALT Alkaline Phosphatase Lactate Dehydrogenase Serum Total Protein Albumin Globulin Albumin/Globulin Ratio Triglycerides Cholesterol LDL Cholesterol, Calc VLDL Cholesterol, Calc HDL Cholesterol Cholesterol/HDL Ratio Vitamin B12 Folate Urine Opiates Screen Ur Barbiturates Screen Ur Phencyclidine Scrn Ur Amphetamines Screen U Benzodiazepines Scrn Urine Cocaine Screen U Marijuana (THC) Screen Blood Type Antibody Screen Crossmatch - Attending Attestation Seen and examined patient and agree with assessment and plan. Patient likely with malabsorptive process given the concomittant b12 and iron deficiency. will plan on IV iron + vitamin b12 parenteral supplementation. Hgb is stable after transfusion suggestive no active bleeding. will plan on outpatient EGD. Will also get celiac serologies. I will plan on seeing her in f/u after the EGD. She will likely require additional iron infusions.
[2017-09-24] MEDS ORDERED: Iron Sucrose Complex 250 MG in 0.9 % Sodium Chloride 250 ML IVPB ONE (19:30)
[2017-09-25] MEDS ORDERED: amLODIPine 5 MG TABLET PO SCH (09:00)
[2017-09-25] MEDS: Amoxicillin/Clavulanate 500 MG TABLET PO SCH (09:24)
[2017-09-25] MEDS: Lactobacillus 1 EACH CAP.SPRINK PO SCH (09:24)
[2017-09-25] MEDS: Cyanocobalamin (B-12) 1,000 MCG/ML VIAL SQ SCH (09:24)
--- NOTE | 2017-09-25 10:04 | Discharge Summary ---
- NOTES TO OUTPATIENT PROVIDER Notes to Outpatient Provider: Will need outpatient GI referral for colonoscopy/ EGD. We will also need outpatient EEG. Recommend follow-up within 1-2 weeks for BP recheck, repeat CBC and repeat CMP. Orders not resulted at time of discharge: Pending orders 09/22/17 17:20 Red Blood Cells [BBK] Stat Type and Screen [BBK] Stat 09/24/17 10:25 Celiac Disease Reflex [place] Routine Intrinsic Factor Blocking Ab Routine Parietal Cell IgG Routine Date of Encounter: 09/25/17 Time of Encounter: 10:01 - Discharge Diagnosis (1) Microcytic anemia Priority: Primary Status: Inactive Assessment and Plan: presented with seizure like activity and incidentally found to be anemic. Hgb 7 on arrival. No known hx anemia. Denied hematochezia/melena. Received 1 unit PRBC with improvement in hemoglobin to 9.5. Etiology unclear at this time. Evaluated by Hematology who who noted concomitant B12 deficiency, suspect malabsoprtion; celiac disease workup ordered. Received one time dose IV venofer. Will need to follow-up woth GI/Hematology outpatient. (2) Seizure-like activity Priority: Primary Status: Acute Assessment and Plan: presented after an episode a possible seizure-like activity followed by 30 minute period of confusion. UDS negative. Head CT and brain MRI unremarkable. TTE with EF 65%, mild diastolic dysfunction, moderate LVH, no significant valvular dysfunction. Evaluated by Neurology who did not suspect true seizure and did not recommend AEDs. No symptom recurrence while inpatient. An outpatient EEG was recommended. (3) Hypokalemia Priority: Primary Status: Inactive Assessment and Plan: K 2.7 on arrival and improved with replacement. Recommend repeat CMP with PCP within 1-2 weeks (4) HTN (hypertension) Priority: Primary Status: Acute Assessment and Plan: new dx this hospitalization. Discharge home on leg pain, BB. Recommend follow- up with PCP within 1-2 weeks. Qualifiers: Hypertension type: essential hypertension Qualified Code(s): I10 - Essential (primary) hypertension Hospital course: please see assessment and plan for Hospital course Discharge discussed with: patient (Seen and examined at bedside. Patient is new to me, information obtained from chart review and patient report. Overall says she feels better would like to discharge home today. No further seizure- like activity, denies hematochezia, no melena. Discussed case with social services assistant provided HCAP/assistance paperwork. Follow-up appt was added with [facility].) - Time Spent with Patient Total time spent providing and/or coordinating discharge services: - Discharge Medications Prescriptions: amLODIPine [Norvasc] 10 mg PO DAILY #60 tablet Cyanocobalamin (B-12) [Vitamin B12] 1,000 mcg SQ DAILY #4 vial Metoprolol [Lopressor] 25 mg PO BID #60 tablet Home Medications: Cyanocobalamin (B-12) [Vitamin B12] 1,000 mcg SQ DAILY #4 vial 09/25/17 [Rx] Metoprolol [Lopressor] 25 mg PO BID #60 tablet 09/25/17 [Rx] amLODIPine [Norvasc] 10 mg PO DAILY #60 tablet 09/25/17 [Rx] Allergies/Adverse Reactions: 3 Allergy/AdvReac Type Severity Reaction Status Date / Time Sulfa (Sulfonamide Allergy Anaphylaxis Verified 09/22/17 10:56 Antibiotics) Date of admission: 09/22/17 03:54 Primary care physician: PCP NONE Consults: 09/22/17 05:13 Consult to Neurology [CONS] Routine Consulting Provider: Neurology [facility] Reason for Consult: seizure like activity Call Completed: No 09/23/17 08:57 Consult to Oncology Hematology [CONS] Routine Consulting Provider: Oncology [facility] Reason for Consult: Iron deficiency anemia Time Notified: 09:00 Call Completed: Yes 09/24/17 11:24 Consult to Interpret Exam [CONS] Routine Consulting Provider: Umair Clayton Consult to Interpret Exam: Interpret EEG Discharging clinician: Nisa Escamilla Anticipated date of discharge: 09/25/17 - Constitutional Vitals: Temp Pulse Resp BP Pulse Ox 97.8 F 68 14 169/92 98 09/25/17 07:21 09/25/17 07:21 09/25/17 07:21 09/25/17 07:21 09/25/17 07:21 General appearance: Present: A&O X 3, no acute distress, answers questions appropriately - Head Head exam: Present: atraumatic, normocephalic - Eye Eye exam: Present: PERRL, conjuntiva pink, sclera anicteric Pupils: Present: PERRL - Neck Neck exam general surgery: Present: supple, trachea midline. Absent: lymphadenopathy - Respiratory Respiratory exam: Present: CTAB. Absent: accessory muscle use, rales, rhonchi, wheezes - Cardiovascular Cardiovascular exam: Present: RRR, +S1, +S2. Absent: diastolic murmur, gallop, rubs, systolic murmur - GI/Abdominal GI/Abdominal exam: Present: normal bowel sounds, soft, no peritoneal signs. Absent: distended, tenderness - Extremities Exam Extremities exam: Present: warm, radial pulses palpable and symmetrical. Absent : calf tenderness, cyanotic, pedal edema - Neurological Exam Neurological exam: Present: CN II-XII intact, oriented X3, no focal deficits. Absent: pronater drift, facial droop, speech deficit - Skin Skin exam: Present: dry, intact - Patient Status Disposition: Home, Self-Care Condition: Good Functional capacity at discharge: independent ambulation Overall status at discharge: patient is back to baseline - Discharge Instructions Instructions: Metoprolol (By mouth), Amlodipine (By mouth), Electroencephalogram (DC), Hypertension (DC), Anemia (DC), Vitamin B12 Deficiency (GEN) Follow Up With: Kevin Dawson [Non-Partnered Physician] - 10/01/17 9:00 am (Please arrive 15- 20 minutes early and fill out paperwork. Please bring your photo ID, insurance card and any medications you are on. If you need to cancel please give a 24 hour notice. Thank you) Arias Bravo [Non-Partnered Physician] - (Please call the office for follow- up appt once you have seen GI doctor ) Jimbo Doan MD [Partnered Physician] - (It is recommended to follow-up with gastroenterology within 1-2 weeks for possible EGD/colonoscopy) Additional Instructions: It is recommneded that you have an EEG completed on outpatient basis. Please follow-up with your primary care doctor for referral. - Diet and Activity Activity: increase activity as tolerated Diet: advance to your usual diet - VTE Documentation of Mechanical Device: Intermittent pneumatic compression device
[2017-09-25 10:42] LABS: Hematocrit 31.5 % (35.3-44.9); Hemoglobin 9.3 g/dL (11.5-15.4)
[2017-09-25 10:47] VITALS: BP 144/85
[2017-09-26 13:28] LABS: Immunoglobulin A (CELIAC) 218 mg/dL (68-408)
[2017-09-27 09:03] LABS: Tissue Transglutaminase IgA 0 U/mL (0-3)
== END 2017-09-25 15:26 | disposition home or self-care (01) ==
LOC: 3ANU → SUATTDRO 03:54
PROVIDERS: ADMIT Internal Medicine; ATTEND Hospitalist

== ENCOUNTER 2020-07-27 14:22 | Observation (INO) ==
[2020-07-27] MEDS ORDERED: Isovue-370 500 ML BOTTLE IVP ONE (15:10)
[2020-07-27] MEDS ORDERED: 0.9 % Sodium Chloride 1,000 ML IVC ONE (15:10)
[2020-07-27] MEDS ORDERED: Ondansetron 4 MG/2 ML VIAL IVP ONE (15:10)
[2020-07-27] MEDS ORDERED: Ketorolac 15 MG/ML VIAL IVP ONE (15:10)
[2020-07-27 15:56] LABS: Bilirubin,Urine Negative (Negative); Blood,Urine Trace (Negative); Clarity,Urine Clear (Clear); Color,Urine Colorless (Yellow); Glucose,Urine (UA) 100 mg/dL (Normal); Ketones,Urine Negative (Negative); Leukocyte Esterase,Urine Negative (Negative); Mucus,Urine Few per lpf (None-Few); Nitrite,Urine Negative (Negative); PH,Urine 7.5 pH Units (5.0-8.0); Protein,Urine 100 mg/dL (Neg-Trace); Squamous Epithelial Cell,Urine Few per hpf (None-Few); Urobilinogen,Urine Normal (Normal); WBC,Urine 0-3 per hpf (0-3)
[2020-07-27 16:02] LABS: Alanine Aminotransferase 14 Units/L (7-52); Albumin 4.8 g/dL (3.5-5.7); Albumin/Globulin Ratio 1.5 (1.1-2.2); Alkaline Phosphatase 51 Units/L (34-104); Aspartate Amino Transferase 18 Units/L (13-39); BUN/Creatinine Ratio 22 (6-26); Bilirubin,Direct 0.1 mg/dL (0.0-0.2); Bilirubin,Indirect 0.6 mg/dL (0.0-1.0); Bilirubin,Total 0.7 mg/dL (0.3-1.0); Blood Urea Nitrogen 20 mg/dL (6-20); Calcium 9.4 mg/dL (8.6-10.3); Carbon Dioxide 32 mEq/L (23-29); Chloride 96 mEq/L (98-107); Globulin 3.1 g/dL (2.4-3.5); Glucose 120 mg/dL (70-105); Lipase 8 Units/L (11-82); Osmolality,Calculated 284 (280-300); Potassium 3.2 mEq/L (3.5-5.1); Sodium 135 mEq/L (136-145); Total Protein 7.9 g/dL (6.4-8.9); eGFR For African Americans > 60 (> 60); eGFR For Non-African Americans > 60 (> 60)
[2020-07-27] MEDS ORDERED: Potassium Chloride Elixir 20 MEQ/15 ML UDC PO ONE (16:15)
[2020-07-27 16:43] LABS: Basophils % 0.2 %; Eosinophils % 0.1 %; Hematocrit 43.5 % (35.3-44.9); Hemoglobin 15.1 g/dL (11.5-15.4); Immature Granulocytes % 0.3 % (0-4); Lymphocytes # 0.4 K/mcL (0.6-4.6); Lymphocytes % 4.5 %; Mean Corpuscular HGB Conc 34.7 g/dL (31.6-35.5); Mean Corpuscular Hemoglobin 29.4 pg (28.0-33.3); Mean Corpuscular Volume 84.8 fL (83.0-100.0); Mean Platelet Volume 12.3 fL (9.4-12.4); Monocytes # 0.2 K/mcL (0.0-1.3); Monocytes % 2.7 %; Neutrophils # 8.3 K/mcL (1.6-8.9); Platelet Count 209 K/mcL (140-400); Red Blood Count 5.13 M/mcL (3.82-4.97); Red Cell Distribution Width 12.2 % (11.5-14.5); Segmented Neutrophils % 92.2 %
[2020-07-27] MEDS ORDERED: Naloxone 0.4 MG/ML INJ IVP PRN ×2 (18:04→23:14)
[2020-07-27] MEDS ORDERED: Ondansetron 4 MG/2 ML VIAL IVP PRN ×2 (18:04→23:14)
[2020-07-27] MEDS ORDERED: Morphine Sulfate 2 MG/ML SYRINGE IVP PRN ×2 (18:06→23:14)
[2020-07-27] MEDS ORDERED: *HR* Propofol 200 MG/20 ML VIAL IVP ONE (21:07)
[2020-07-27] MEDS ORDERED: Lidocaine -MPF 2% 2 ML VIAL ONE (21:07)
[2020-07-27] MEDS ORDERED: *HR* FentaNYL (PF) 100 MCG/2 ML VIAL ONE (21:07)
[2020-07-27] MEDS ORDERED: Dexamethasone 4 MG/ML VIAL ONE (21:07)
[2020-07-27] MEDS ORDERED: Ondansetron 4 MG/2 ML VIAL ONE (21:07)
[2020-07-27] MEDS ORDERED: *HR* Rocuronium Bromide 50 MG/5 ML VIAL ONE (21:07)
[2020-07-27] MEDS ORDERED: Acetaminophen IV 1,000 MG/100 ML BAG IVPB ONE (21:17)
[2020-07-27] MEDS ORDERED: *HR* HYDROMORPHONE 2 MG/ML VIAL ONE (21:37)
[2020-07-27] MEDS ORDERED: Neostigmine Methylsulfate 3 MG/3 ML SYRINGE ONE ×2 (21:46→21:53)
[2020-07-27] MEDS ORDERED: *HR* HYDROmorphone (PF) 1 MG/ML SYRINGE ONE (22:29)
[2020-07-27] MEDS: *HR* HYDROmorphone PF 0.5 MG/0.5 ML SYRINGE IVP PRN ×2 (22:30→22:35)
[2020-07-28 06:23] LABS: Basophils % 0.1 %; Hematocrit 39.1 % (35.3-44.9); Immature Granulocytes % 0.5 % (0-4); Lymphocytes # 0.5 K/mcL (0.6-4.6); Lymphocytes % 4.7 %; Mean Corpuscular HGB Conc 34.5 g/dL (31.6-35.5); Mean Corpuscular Hemoglobin 29.9 pg (28.0-33.3); Mean Corpuscular Volume 86.7 fL (83.0-100.0); Mean Platelet Volume 11.9 fL (9.4-12.4); Monocytes # 0.4 K/mcL (0.0-1.3); Monocytes % 3.3 %; Neutrophils # 10.1 K/mcL (1.6-8.9); Platelet Count 203 K/mcL (140-400); Red Blood Count 4.51 M/mcL (3.82-4.97); Red Cell Distribution Width 12.3 % (11.5-14.5); Segmented Neutrophils % 91.4 %; White Blood Count 11.1 K/mcL (4.3-11.1)
[2020-07-28 06:24] LABS: Hemoglobin 13.5 g/dL (11.5-15.4)
[2020-07-28 06:41] LABS: BUN/Creatinine Ratio 15 (6-26); Blood Urea Nitrogen 13 mg/dL (6-20); Calcium 8.6 mg/dL (8.6-10.3); Carbon Dioxide 26 mEq/L (23-29); Chloride 104 mEq/L (98-107); Glucose 117 mg/dL (70-105); Osmolality,Calculated 285 (280-300); Potassium 3.7 mEq/L (3.5-5.1); Sodium 137 mEq/L (136-145); eGFR For African Americans > 60 (> 60); eGFR For Non-African Americans > 60 (> 60)
[2020-07-28] MEDS ORDERED: lisinopriL 10 MG TABLET PO SCH (09:00)
[2020-07-28 13:07] VITALS: BP 147/66
== END 2020-07-28 13:24 | disposition home or self-care (01) ==
LOC: EMEROOARM 14:22 → 3BNU 14:22 → SUATTDRO 18:19 → 3BNU 20:06
PROVIDERS: ADMIT Internal Medicine; ATTEND Internal Medicine